=== PATIENT | female | born 1980 | race Caucasian/White ===

== ENCOUNTER 2016-08-03 06:50 | Emergency (ER) | payer OTHER ==
[~2016-08-03 06:50] MED LIST: ACET50TA PO; DIPH50CA PO; HYDR100T13 PO; LABE300T PO; PRENTAB29 PO; PRIL40CA PO
[2016-08-03 07:35] LABS: BASO % 0.4 % (0.0-1.0); EOS # 0.3 K/mm3 (0.0-0.50); EOS % 3.5 % (0.0-3.0); LARGE UNSTAINED CELL # 0.1 K/mm3 (0.0-0.4); LARGE UNSTAINED CELL % 1.8 % (0.0-4.0); LYMPH # 1.7 K/mm3 (1.5-4.5); LYMPH % 22.5 % (24.0-44.0); MEAN CORPUSCULAR HEMOGLOBIN 30.4 pg (27.0-33.0); MEAN CORPUSCULAR HGB CONC 34.2 g/dl (32.0-36.5); MONO # 0.3 K/mm3 (0.0-0.8); MONO % 4.5 % (0.0-5.0); NEUTROPHILS % 67.2 % (36.0-66.0); PLATELET COUNT, AUTOMATED 338 k/mm3 (150-450); RED CELL DISTRIBUTION WIDTH 12.5 % (11.5-14.5); WHITE BLOOD COUNT 7.4 K/mm3 (4.0-10.0)
[2016-08-03 07:49] VITALS: BP 161/92
[2016-08-03] MEDS ORDERED: LABETALOL HCL 100 MG/20 ML VIAL IV STA (07:49)
[2016-08-03 08:06] LABS: ANION GAP 10 MEQ/L (8-16); BLOOD UREA NITROGEN 14 MG/DL (7-18); CALCIUM LEVEL 8.4 MG/DL (8.5-10.1); CARBON DIOXIDE LEVEL 20 MEQ/L (21-32); CHLORIDE LEVEL 112 MEQ/L (98-107); CREATININE FOR GFR 0.99 MG/DL (0.55-1.02); GLOMERULAR FILTRATION RATE > 60.0 (>60); GLUCOSE, FASTING 90 MG/DL (70-105); POTASSIUM SERUM 3.7 MEQ/L (3.5-5.1); SODIUM LEVEL 142 MEQ/L (136-145); T UPTAKE 30 % (30-39); THYROXINE (T4) 8.7 UG/DL (4.5-12.0)
[2016-08-03] MEDS ORDERED: diphenhydrAMINE INJ 50MG/ML VIAL (J1200) IV STA (09:04)
[2016-08-03] MEDS ORDERED: METOCLOPRAMIDE INJ 10MG/2ML VIAL (J2765) IV ONE (09:15)
--- NOTE | 2016-08-03 10:10 | REP ---
CT Head without contrast HISTORY: Headache COMPARISON: 07/09/2015 There is no intraparenchymal hemorrhage, acute infarct, mass or midline shift. The ventricular system is normal in appearance. There is no extra cerebral collection. There is no fracture. The visualized sinuses are clear. IMPRESSION: There is no intracranial lesion. Signed by Milton Lux MD 08/03/2016 10:01 A
[2016-08-03] MEDS ORDERED: KETOROLAC 30 MG/ML VIAL (J1885) IV ONE (10:30)
[2016-08-03] MEDS ORDERED: BYST5TAB2 PO (11:08)
[2016-08-03 11:41] VITALS: BP 145/92
--- NOTE | 2016-08-04 10:12 | ECGEPIP ---
Stationary ECG Study [facility] - ED Test Date: 2016-08-03 Pat Name: BETH TOLENTINO Department: Room: - Gender: F Edge [employer]ing [employer] Bearer: KOKO : 1980 Requested By: Calli Valiente Order Number: [id number] Reading MD: Mich King Measurements Intervals Arrey Rate: 77 P: 29 NV: 155 QRS: 13 QRSD: 87 T: 16 QT: 357 QTc: 406 Interpretive Statements SINUS RHYTHM MODERATE VOLTAGE CRITERIA FOR LVH, CONSIDER NORMAL VARIANT SIMILAR TO 07/09/15 Electronically Signed On 08-04-2016 10:12:06 EST by Mich King
== END 2016-08-03 11:46 | disposition home or self-care (01) ==
LOC: M ED 06:50
DX: I10 Essential (primary) hypertension (principal); F17.210 Nicotine dependence, cigarettes, uncomplicated
CPT/HCPCS: 36415; 70450; 80048; 84436; 84443; 84479; 85025; 93005; 93041; 96374; 96375; 99284; J1200; J1885; J2765

== ENCOUNTER → 2019-03-30 | Outpatient (CLI) | payer OTHER ==
[~2019-03-30] MED LIST changes: -ACET50TA PO; +BYST5TAB2 PO; +MAPA500T17 PO
[2019-03-30 12:58] LABS: BASO % 0.4 % (0.0-1.0); EOS # 0.2 10^3/uL (0.0-0.5); EOS % 2.6 % (0.0-3.0); HEMATOCRIT 44.8 % (36.0-47.0); HEMOGLOBIN 15.4 g/dl (12.0-15.5); LYMPH # 1.9 10^3/uL (1.5-5.0); LYMPH % 27.2 % (24.0-44.0); MEAN CORPUSCULAR HGB CONC 34.4 g/dl (32.0-36.5); MEAN CORPUSCULAR VOLUME 90.1 fl (80.0-96.0); MONO # 0.5 10^3/uL (0.0-0.8); MONO % 7.4 % (0.0-5.0); NEUTROPHILS # 4.3 10^3/uL (1.5-8.5); NEUTROPHILS % 62.3 % (36.0-66.0); PLATELET COUNT, AUTOMATED 388 10^3/uL (150-450); RED BLOOD COUNT 4.97 10^6/uL (4.00-5.40); WHITE BLOOD COUNT 6.9 10^3/uL (4.0-10.0)
[2019-03-30 13:35] LABS: ALBUMIN 3.7 GM/DL (3.2-5.2); BILIRUBIN,TOTAL 0.4 MG/DL (0.2-1.0); CALCIUM LEVEL 9.4 MG/DL (8.5-10.1); CHOLESTEROL RISK RATIO 4.731 (<5); CREATININE FOR GFR 1.21 MG/DL (0.55-1.30); FREE T4 1.08 NG/DL (0.76-1.46); GLOMERULAR FILTRATION RATE 53.3 (>60); POTASSIUM SERUM 3.6 MEQ/L (3.5-5.1); THYROID STIMULATING HORMONE 1.22 uIU/ML (0.358-3.740); TOTAL PROTEIN 7.8 GM/DL (6.4-8.2)
[2019-03-30 13:41] LABS: HEMOGLOBIN A1c 5.5 %
== END ==
LOC: M WUC 09:12
PROVIDERS: ATTEND Family Medicine
DX: Z13.29 Encounter for screening for other suspected endocrine disorder (principal); E78.2 Mixed hyperlipidemia; Z13.0 Encounter for screening for diseases of the blood and blood-forming organs and certain disorders involving the immune mechanism

== ENCOUNTER → 2021-02-20 | Outpatient (REF) | payer OTHER | LOC: M LAB REF 16:43 | PROVIDERS: ATTEND Family Medicine | DX: J20.9 Acute bronchitis, unspecified (principal) ==

== ENCOUNTER → 2022-12-06 | Outpatient (CLI) | payer OTHER ==
[~2022-12-06] MED LIST changes: +DOXY100C82 PO
[2022-12-06 11:14] LABS: BASO % 0.4 % (0.0-1.0); EOS # 0.2 10^3/uL (0.0-0.5); EOS % 2.3 % (0.0-3.0); HEMATOCRIT 33.8 % (36.0-47.0); HEMOGLOBIN 10.5 g/dl (12.0-15.5); LYMPH # 0.9 10^3/uL (1.5-5.0); LYMPH % 9.2 % (24.0-44.0); MEAN CORPUSCULAR HGB CONC 31.1 g/dl (32.0-36.5); MEAN CORPUSCULAR VOLUME 77.3 fl (80.0-96.0); MONO # 0.8 10^3/uL (0.0-0.8); MONO % 7.8 % (2.0-8.0); NEUTROPHILS # 7.9 10^3/uL (1.5-8.5); PLATELET COUNT, AUTOMATED 486 10^3/uL (150-450); RED BLOOD COUNT 4.37 10^6/uL (4.00-5.40); WHITE BLOOD COUNT 9.9 10^3/uL (4.0-10.0)
[2022-12-06 11:33] LABS: PERCENT SATURATION 4.7 % (13.2-45.0)
[2022-12-06 11:34] LABS: FERRITIN 12.7 NG/ML (7.3-270.7)
[2022-12-06 11:35] LABS: FOLATE 9.9 NG/ML (>5.4)
== END ==
LOC: M LAB 10:39
PROVIDERS: ATTEND Nurse Practitioner Adult Health
DX: D58.2 Other hemoglobinopathies (principal)

== ENCOUNTER 2022-12-08 17:19 | Emergency (ER) | payer OTHER ==
[~2022-12-08] VITALS: Ht 165.1 cm; Wt 101.4 kg
[~2022-12-08 17:19] MED LIST changes: -DOXY100C82 PO
[2022-12-08 18:08] LABS: BASO % 0.4 % (0.0-1.0); EOS # 0.3 10^3/uL (0.0-0.5); EOS % 3.5 % (0.0-3.0); HEMATOCRIT 33.6 % (36.0-47.0); HEMOGLOBIN 10.6 g/dl (12.0-15.5); LYMPH # 1.6 10^3/uL (1.5-5.0); LYMPH % 16.9 % (24.0-44.0); MEAN CORPUSCULAR HEMOGLOBIN 24.1 pg (27.0-33.0); MEAN CORPUSCULAR HGB CONC 31.5 g/dl (32.0-36.5); MEAN CORPUSCULAR VOLUME 76.5 fl (80.0-96.0); MONO # 0.7 10^3/uL (0.0-0.8); MONO % 6.8 % (2.0-8.0); NEUTROPHILS # 6.9 10^3/uL (1.5-8.5); NEUTROPHILS % 71.9 % (36.0-66.0); PLATELET COUNT, AUTOMATED 452 10^3/uL (150-450); RED BLOOD COUNT 4.39 10^6/uL (4.00-5.40); WHITE BLOOD COUNT 9.6 10^3/uL (4.0-10.0)
[2022-12-08 18:35] LABS: BLOOD UREA NITROGEN 13 MG/DL (9-23); CALCIUM LEVEL 8.6 MG/DL (8.5-10.1); CARBON DIOXIDE LEVEL 18 MMOL/L (20-31); CHLORIDE LEVEL 107 MMOL/L (98-107); GLOMERULAR FILTRATION RATE 40.7 (>58); GLUCOSE, FASTING 76 MG/DL (60-100); POTASSIUM SERUM 4.8 MMOL/L (3.5-5.1); SODIUM LEVEL 133 MMOL/L (136-145)
[2022-12-08 18:38] LABS: THYROID STIMULATING HORMONE 2.065 uIU/ML (0.55-4.78)
[2022-12-08] MEDS ORDERED: DERMABOND TOPICAL SKIN ADHESIVE TOP ONE (18:45)
[2022-12-08] MEDS ORDERED: BOOSTRIX VACCINE (TETANUS/DIPHTH/ACEL. PERTUSSIS) 0.5ML SYR IM.IMMUN ONE (18:45)
[2022-12-08 19:04] LABS: CK-MB VALUE MASS < 1.0 NG/ML (<3.6)
[2022-12-08 19:06] LABS: HCG, SERUM QUALITATIVE NEGATIVE (NEGATIVE)
[2022-12-08 19:07] LABS: CPK CREATINE PHOSPHOKINASE 63 U/L (34-145); MB/CK RELATIVE INDEX 1.58 (< OR =4)
[2022-12-08] MEDS ORDERED: NS 1,000 ML IV ONE (19:40)
[2022-12-08] MEDS ORDERED: ISOVUE-370 76% 100ML VIAL As Ordered ONE (19:47)
[2022-12-08 20:41] LABS: CK-MB VALUE MASS < 1.0 NG/ML (<3.6)
[2022-12-08 20:42] LABS: CPK CREATINE PHOSPHOKINASE 53 U/L (34-145); MB/CK RELATIVE INDEX 1.88 (< OR =4)
[2022-12-08] MEDS ORDERED: DOXY100C82 PO (23:30)
[2022-12-08] MEDS ORDERED: DOXYCYCLINE HYCLATE 100MG TABLET PO ONE (23:35)
[2022-12-08 23:58] VITALS: BP 138/71; TEMP 97.9; O2SAT 98
== END 2022-12-09 00:01 | disposition home or self-care (01) ==
LOC: EDBD 17:19 → M ED 17:19
DX: S01.419A Laceration without foreign body of unspecified cheek and temporomandibular area, initial encounter (principal); R55 Syncope and collapse; J18.9 Pneumonia, unspecified organism; K44.9 Diaphragmatic hernia without obstruction or gangrene; R91.8 Other nonspecific abnormal finding of lung field; I10 Essential (primary) hypertension; K21.9 Gastro-esophageal reflux disease without esophagitis; F17.200 Nicotine dependence, unspecified, uncomplicated; Z88.0 Allergy status to penicillin; Z88.2 Allergy status to sulfonamides; Z91.040 Latex allergy status; Z79.899 Other long term (current) drug therapy; Z23 Encounter for immunization
CPT/HCPCS: 12011; 70450; 71046; 71275; 80048; 82550; 82553; 84443; 84484; 84703; 85025; 90471; 90715; 93005; 93041; 94760; 96361; 99285; Q9967

== ENCOUNTER 2022-12-16 08:58 | Outpatient (CLI) | payer OTHER ==
[~2022-12-16] VITALS: Ht 165.1 cm; Wt 100.0 kg
[~2022-12-16 08:58] MED LIST changes: +DOXY100C82 PO
[2022-12-16] MEDS ORDERED: FERRIC CARBOXYMALTOSE INJ 750 MG in NS 250 ML (>50kg) IV ONE ×3 (09:00)
[2022-12-16 09:11] VITALS: BP 134/94; O2SAT 98
[2022-12-16 10:44] VITALS: BP 151/89; O2SAT 99
== END 2022-12-16 10:45 ==
LOC: M INFU 08:58
PROVIDERS: ATTEND Nurse Practitioner Adult Health
DX: D50.9 Iron deficiency anemia, unspecified (principal); Z88.0 Allergy status to penicillin; Z88.2 Allergy status to sulfonamides; Z88.1 Allergy status to other antibiotic agents
CPT/HCPCS: 96365; J1439

== ENCOUNTER 2022-12-23 07:45 | Outpatient (CLI) | payer OTHER ==
[~2022-12-23] VITALS: Ht 165.1 cm; Wt 100.0 kg
[2022-12-23 07:51] VITALS: BP 163/95; O2SAT 98
[2022-12-23] MEDS ORDERED: FERRIC CARBOXYMALTOSE INJ 750 MG in NS 250 ML (>50kg) IV ONE ×3 (08:00)
[2022-12-23 08:57] VITALS: BP 160/95; O2SAT 97
== END 2022-12-23 09:00 | disposition home or self-care (01) ==
LOC: M INFU 07:45
PROVIDERS: ATTEND Nurse Practitioner Adult Health
DX: D50.9 Iron deficiency anemia, unspecified (principal); Z88.0 Allergy status to penicillin; Z88.2 Allergy status to sulfonamides; Z88.1 Allergy status to other antibiotic agents
CPT/HCPCS: 96365; J1439

== ENCOUNTER → 2023-05-16 | Outpatient (CLI) | payer OTHER ==
[~2023-05-16] MED LIST changes: +BUPR300T92 PO; +BUSP10TA PO; +CHLO125TA PO; +CLON1TAB8 PO; +IRON65TA2 PO; +NEBI5TAB PO; +OMEP40CA5 PO; +TRAZ-252 PO
[2023-05-16 13:09] LABS: BASO % 0.4 % (0.0-1.0); EOS # 0.1 10^3/uL (0.0-0.5); EOS % 2.4 % (0.0-3.0); HEMATOCRIT 39.8 % (36.0-47.0); LYMPH # 1.4 10^3/uL (1.5-5.0); LYMPH % 28.3 % (24.0-44.0); MEAN CORPUSCULAR HEMOGLOBIN 32.5 pg (27.0-33.0); MEAN CORPUSCULAR HGB CONC 35.2 g/dl (32.0-36.5); MEAN CORPUSCULAR VOLUME 92.3 fl (80.0-96.0); MONO # 0.3 10^3/uL (0.0-0.8); MONO % 6.2 % (2.0-8.0); NEUTROPHILS # 3.1 10^3/uL (1.5-8.5); NEUTROPHILS % 62.5 % (36.0-66.0); PLATELET COUNT, AUTOMATED 339 10^3/uL (150-450); RED BLOOD COUNT 4.31 10^6/uL (4.00-5.40)
[2023-05-16 13:41] LABS: PERCENT SATURATION 22.6 % (13.2-45.0)
== END ==
LOC: M LAB 12:10
PROVIDERS: ATTEND Nurse Practitioner Adult Health
DX: D50.9 Iron deficiency anemia, unspecified (principal)

== ENCOUNTER 2023-05-17 11:40 | Day surgery (SDC) | payer OTHER ==
[~2023-05-17] VITALS: Ht 165.1 cm; Wt 98.0 kg
[~2023-05-17 11:40] MED LIST changes: +NS 1,000 ML IV ONE
[2023-05-17] MEDS ORDERED: fentaNYL 100 MCG/2 ML INJECTION As Ordered ONE (14:25)
[2023-05-17] MEDS ORDERED: LIDOCAINE 2% 100MG/5ML SDV (FOR ANES.) As Ordered ONE (14:25)
[2023-05-17] MEDS ORDERED: propofoL 200 MG/20 ML VIAL As Ordered ONE ×2 (14:25→14:41)
[2023-05-17 15:04] VITALS: TEMP 97.7
[2023-05-17 15:27] VITALS: BP 168/89; O2SAT 94
== END 2023-05-17 15:45 | disposition home or self-care (01) ==
LOC: M OPP 11:40
PROVIDERS: ATTEND Internal Medicine Gastroenterology
DX: D12.2 Benign neoplasm of ascending colon (principal); D12.4 Benign neoplasm of descending colon; D12.7 Benign neoplasm of rectosigmoid junction; K64.4 Residual hemorrhoidal skin tags; K64.8 Other hemorrhoids; D50.9 Iron deficiency anemia, unspecified; K44.9 Diaphragmatic hernia without obstruction or gangrene; K29.70 Gastritis, unspecified, without bleeding; K21.00 Gastro-esophageal reflux disease with esophagitis, without bleeding; F17.200 Nicotine dependence, unspecified, uncomplicated; Z79.83 Long term (current) use of bisphosphonates; Z79.899 Other long term (current) drug therapy; Z88.0 Allergy status to penicillin; Z88.2 Allergy status to sulfonamides; Z91.018 Allergy to other foods; Z91.040 Latex allergy status
CPT/HCPCS: 43239; 45385; 88305; 91035; J3010